=== PATIENT | male | born 1960 | race African-American/Black ===

== ENCOUNTER 2017-05-18 16:44 | Emergency (ER) | payer SELFPAY ==
[2017-05-18] MEDS ORDERED: Tetracaine HCl 0.5% Ophth Soln 2 ML Bottle ONE (16:51)
[2017-05-18] MEDS ORDERED: Fluorescein Opthalmic Strip ONE (16:51)
== END 2017-05-18 17:25 | disposition home or self-care (01) ==
LOC: BURERS 16:44
DX: H10.9 Unspecified conjunctivitis (principal); E78.5 Hyperlipidemia, unspecified; I10 Essential (primary) hypertension; F41.9 Anxiety disorder, unspecified; F32.9 Major depressive disorder, single episode, unspecified
CPT/HCPCS: 99283